=== PATIENT | male | born 1980 | race Caucasian/White ===

== ENCOUNTER 2021-04-21 10:51 | Observation (INO) ==
[2021-04-21] MEDS ORDERED: Al Hydrox/Mg Hydrox/Simet LIQ 30 ML UDC PO ONE (13:05)
[2021-04-21] MEDS ORDERED: NS 0.9% 1000 ml BAG 1,000 ML IV ONE (13:05)
[2021-04-21] MEDS ORDERED: Famotidine IV 10 MG/ML 2 ml VIAL (20 mg) IV SLOW PU ONE (13:05)
[2021-04-21] MEDS ORDERED: Ondansetron 4 mg VIAL 2 MG/ML 2 ml VIAL IV ONE ×2 (13:07→17:34)
[2021-04-21 13:09] LABS: ABS Basophils 0.1 10^3/ul (0-0.2); ABS Eosinophils 0.2 10^3/ul (0-0.6); ABS Lymphocytes 2.1 10^3/ul (1.0-4.8); ABS Monocytes 1.5 10^3/ul (0-0.8); ABS Neutrophils 9.8 10^3/ul (1.5-7.7); Eosinophil % 1.5 %; Hematocrit 39 % (42-52); Hemoglobin 13.7 g/dL (14.0-18.0); Lymphocyte % 15.1 %; Mean Corpuscular HGB Conc 35 g/dL (31-36); Mean Corpuscular Hemoglobin 31 pg (27-31); Mean Corpuscular Volume 89 fL (80-94); Mean Platelet Volume 6.7 fL (7.4-10.4); Platelet Count 385 10^3/uL (150-450); Red Blood Count 4.39 10^6 /uL (4.18-5.48); Red Cell Distribution Width 14 % (10-15); White Blood Count 13.7 10^3/uL (3.5-10.8)
[2021-04-21 13:26] LABS: ALT 94 U/L (7-52); AST 48 U/L (13-39); Albumin 4.6 g/dL (3.2-5.2); Albumin/Globulin Ratio 1.4 (1-3); Alkaline Phosphatase 167 U/L (35-149); Anion Gap 5 mmol/L (2-11); Blood Urea Nitrogen 5 mg/dL (6-24); CO2 Carbon Dioxide 30 mmol/L (22-32); Calcium 9.5 mg/dL (8.6-10.3); Chloride 101 mmol/L (101-111); Globulin 3.3 g/dL (2-4); Glucose 113 mg/dL (70-100); Lipase < 10 U/L (11.0-82.0); Magnesium 1.8 mg/dL (1.9-2.7); Potassium 3.6 mmol/L (3.5-5.0); Sodium 136 mmol/L (135-145); Total Protein 7.9 g/dL (6.4-8.9)
[2021-04-21] MEDS ORDERED: Iohexol 300 (CONTRAST) 10 ML SDV IV ONE (14:09)
[2021-04-21] MEDS ORDERED: Magnesium Sulfate 2 gm BAG 2 GM/50 ML BAG IVPB ONE (14:39)
[2021-04-21 15:07] LABS: Urine Appearance Clear; Urine Bilirubin Negative (Negative); Urine Blood 2+ (Negative); Urine Color Yellow; Urine Glucose Negative (Negative); Urine Ketones Negative (Negative); Urine Nitrite Negative (Negative); Urine Protein Negative (Negative); Urine Specific Gravity 1.005 (1.002-1.030); Urine Urobilinogen Negative (Negative)
[2021-04-21 15:29] LABS: Urine Bacteria Absent (Absent); Urine Red Blood Cell 2+(6-10/hpf) (Absent); Urine White Blood Cell 2+(11-20/hpf) (Absent)
[2021-04-21] MEDS ORDERED: NS 0.9% 1000 ml BAG 1,000 ML IV SCH (18:45)
[2021-04-21] MEDS ORDERED: Nicotine PATCH 21 MG/24 HR PATCH TRANSDERM ONE (19:20)
[2021-04-21] MEDS: Ondansetron 4 mg VIAL 2 MG/ML 2 ml VIAL IV PRN (23:09)
[2021-04-21] MEDS: HYDROmorphone 1 MG/1 ML SYRINGE IV PRN (23:09)
[2021-04-21 23:21] LABS: Rapid COVID-19 Molecular Undetected (Undetected)
[2021-04-22] MEDS: Piperacillin/Tazobactam VIAL 3.375 GM in NS 0.9% 100 ml BAG 100 ML IVPB SCH ×2 (02:32→02:33)
[2021-04-22] MEDS: HYDROmorphone 1 MG/1 ML SYRINGE IV PRN ×2 (02:34→07:25)
[2021-04-22] MEDS: Ondansetron 4 mg VIAL 2 MG/ML 2 ml VIAL IV PRN (04:32)
[2021-04-22 05:56] LABS: Albumin/Globulin Ratio 1.3 (1-3); Calcium 8.9 mg/dL (8.6-10.3); Potassium 4.1 mmol/L (3.5-5.0); Total Bilirubin 0.9 mg/dL (0.2-1.0)
[2021-04-22] MEDS ORDERED: Propofol 10 MG/ML 20 ML BTL ONE (08:50)
[2021-04-22] MEDS ORDERED: Bupivacaine 0.25% SDV PF 10 ML VIAL INJ ONE (08:50)
[2021-04-22] MEDS ORDERED: Lidocaine 1% w EPI 1:100,000 MDV 20 ML VIAL ONE (08:50)
[2021-04-22] MEDS ORDERED: Dexamethasone IV 4 MG/ML VIAL 1 ml VIAL ONE ×2 (08:51→14:06)
[2021-04-22] MEDS ORDERED: Ondansetron 4 mg VIAL 2 MG/ML 2 ml VIAL ONE (08:51)
[2021-04-22] MEDS ORDERED: HYDROmorphone 1 MG/1 ML SYRINGE ONE ×2 (08:51→10:40)
[2021-04-22] MEDS ORDERED: Glycopyrrolate IV 0.2 MG/ML 1 ML VIAL ONE (08:51)
[2021-04-22] MEDS ORDERED: Rocuronium 50 mg VIAL 10 mg/ml 5 ml VIAL (50 mg) ONE (08:52)
[2021-04-22] MEDS ORDERED: Acetaminophen IV 1 GM/100ML 100 ML IV ONE (09:48)
[2021-04-22] MEDS ORDERED: Naloxone 0.4 mg VIAL 0.4 mg/ml 1 ml VIAL IV PRN (09:56)
[2021-04-22] MEDS ORDERED: DiMENhydriNATE IV 50 mg/ml 1 ml VIAL IV PUSH PRN (09:56)
[2021-04-22] MEDS ORDERED: HYDROmorphone 1 MG/1 ML SYRINGE IV PRN (09:56)
[2021-04-22] MEDS ORDERED: Lidocaine 2% PF 5 ML VIAL ONE (09:58)
[2021-04-22 12:41] VITALS: BP 122/82
== END 2021-04-22 12:30 | disposition home or self-care (01) ==
LOC: EDHOLD 10:51 → ED 10:51 → SUATTDRO 18:37 → SSU 20:10
PROVIDERS: ADMIT Student in an Organized Health Care Education/Training Program; ATTEND Surgery